=== PATIENT | female | born 1990 | race Caucasian/White ===

== ENCOUNTER 2021-05-23 21:13 | Emergency (ER) | payer OTHER ==
[2021-05-23] MEDS ORDERED: ASPIRIN 81 MG CHEWABLE TABLETS PO ONE (22:54)
[2021-05-23] MEDS ORDERED: ASPIRIN 81 MG CHEWABLE TABLETS ONE (23:03)
[2021-05-23] MEDS ORDERED: ACETAMINOPHEN 500 MG TABLET (FP) PO ONE (23:26)
[2021-05-23 23:31] LABS: BASO % 0.4 % (0-2.0); EOS % 1.1 % (0-4.5); HEMATOCRIT 39.2 % (32.4-45.2); HEMOGLOBIN 13.2 GM/dL (10.7-15.3); LYMPH % 32.8 % (8-40); MCH 31.5 pg (25.7-33.7); MCHC 33.8 g/dl (32.0-36.0); MEAN CELL VOLUME 93.2 fl (80-96); MONO % 11.6 % (3.8-10.2); NEUT % 54.1 % (42.8-82.8); PLATELET COUNT 229 10^3/uL (134-434); RBC 4.21 M/mm3 (3.60-5.2)
[2021-05-23 23:42] LABS: CHLORIDE 106 mmol/L (98-107); SODIUM 142 mmol/L (136-145)
[2021-05-23 23:43] LABS: CALCIUM 8.8 mg/dL (8.5-10.1)
[2021-05-23 23:44] LABS: ALBUMIN 4.1 g/dl (3.4-5.0); BLOOD UREA NITROGEN 9.2 mg/dL (7-18); GLUCOSE,RANDOM 120 mg/dL (74-106); PROTHROMBIN TIME (PATIENT) 12.3 SEC (9.7-13.0)
[2021-05-23 23:45] LABS: ANION GAP 5 MMOL/L (8-16); CO2 30 mmol/L (21-32)
[2021-05-23 23:47] LABS: CREATININE 0.8 mg/dL (0.55-1.3); SGOT/AST 14 U/L (15-37); SGPT/ALT 18 U/L (13-61)
[2021-05-23 23:49] LABS: BILIRUBIN,TOTAL 0.3 mg/dL (0.2-1); TOT PROT 7.4 g/dl (6.4-8.2)
[2021-05-23 23:50] LABS: ALK PHOS 62 U/L (45-117)
[2021-05-24] MEDS ORDERED: ACETAMINOPHEN 500 MG TABLET (FP) ONE (00:24)
[2021-05-24] MEDS ORDERED: LIDOCAINE 5% TOPICAL PATCH TP ONE (00:46)
[2021-05-24] MEDS ORDERED: LIDOCAINE 5% TOPICAL PATCH ONE (00:51)
[2021-05-24] MEDS ORDERED: MAG HYDROX/AL HYDROX/SIMETH 30 ML UNIT-DOSE CUP PO ONE (01:03)
[2021-05-24] MEDS ORDERED: MAG HYDROX/AL HYDROX/SIMETH 30 ML UNIT-DOSE CUP ONE ×2 (01:14→01:45)
[2021-05-24 01:20] VITALS: BP 135/77; PULSE 71; TEMP 98.6
[2021-05-24] MEDS ORDERED: LIDOCAINE PATCH REMOVAL MC ONE (13:00)
== END 2021-05-24 02:47 | disposition home or self-care (01) ==
LOC: JER 21:13
DX: R07.9 Chest pain, unspecified (principal)
CPT/HCPCS: 36415; 71046-TC-FY; 80053; 84484; 84703; 85025; 85610; 93005; 93010; 99284-25; C9803; U0003; U0005

== ENCOUNTER 2022-07-19 07:10 | Inpatient (IN) | payer OTHER ==
[2022-07-19] MEDS ORDERED: DINOPROSTONE 10 MG VAGINAL SUPPOSITORY VG ONE (07:59)
[2022-07-19 09:15] LABS: BASO % 0.2 % (0-2.0); EOS % 0.3 % (0-4.5); HEMATOCRIT 39.8 % (32.4-45.2); HEMOGLOBIN 13.7 GM/dL (10.7-15.3); LYMPH % 17.9 % (8-40); MCHC 34.4 g/dl (32.0-36.0); MEAN CELL VOLUME 95.7 fl (80-96); MEAN PLT VOLUME 8.1 fl (7.5-11.1); MONO % 11.9 % (3.8-10.2); NEUT % 69.7 % (42.8-82.8); PLATELET COUNT 197 10^3/uL (134-434); RBC 4.16 M/mm3 (3.60-5.2); WHITE BLOOD COUNT 7.7 K/mm3 (4.0-10.0)
[2022-07-19 09:17] LABS: INR 0.92 (0.83-1.09); PROTHROMBIN TIME (PATIENT) 10.6 SEC (9.7-13.0)
[2022-07-19 09:20] LABS: ACTIVATED PTT 26.6 SECONDS (25.2-36.5)
[2022-07-19 09:31] LABS: BLOOD UREA NITROGEN 8.2 mg/dL (7-18); CALCIUM 8.4 mg/dL (8.5-10.1)
[2022-07-19 09:35] LABS: CREATININE 0.5 mg/dL (0.55-1.3)
[2022-07-19 10:09] VITALS: BMI 26.6
[2022-07-19] MEDS ORDERED: DEXTROSE 5%-LACTATED RINGERS 1,000 ML IV SCH (10:45)
[2022-07-19] MEDS ORDERED: PROMETHAZINE HCL 25 MG/1 ML VIAL IVPUSH ONE (10:46)
[2022-07-19] MEDS ORDERED: BUTORPHANOL TARTRATE 1 MG/ML VIAL IVPUSH PRN (10:46)
[2022-07-19] MEDS ORDERED: BUTORPHANOL TARTRATE 2 MG/ML VIAL ONE (14:11)
[2022-07-19] MEDS ORDERED: PROMETHAZINE HCL 25 MG/1 ML VIAL ONE (14:12)
[2022-07-19] MEDS ORDERED: FENTANYL/BUPIVACAINE/NS/PF - PCEA - 50 ML DISP.SYRIN EP ONE (16:36)
[2022-07-19] MEDS ORDERED: NALOXONE HCL 0.4 MG/ML VIAL IVPUSH PRN (17:20)
[2022-07-19] MEDS ORDERED: FENTANYL/BUPIVACAINE/NS/PF - PCEA - 50 ML DISP.SYRIN EP SCH (17:30)
[2022-07-19] MEDS ORDERED: LIDOCAINE HCL 1% PRESERVATIVE FREE - 30ML VIAL ONE (19:25)
[2022-07-19] MEDS ORDERED: OXYTOCIN 20 UNITS in 0.9% NS 20 UNIT/1,000 ML INFUS.BAG IV ONE (19:25)
[2022-07-19] MEDS ORDERED: BISACODYL 10 MG SUPP.RECT RC PRN (22:18)
[2022-07-19] MEDS ORDERED: METHYLERGONOVINE MALEATE 0.2 MG/1 ML AMP IM PRN (22:18)
[2022-07-19] MEDS ORDERED: ACETAMINOPHEN 325 MG TABLET (FP) PO PRN (22:18)
[2022-07-19] MEDS ORDERED: oxyCODONE HCL 5 MG TABLET PO PRN (22:18)
[2022-07-19] MEDS ORDERED: IBUPROFEN 600 MG TABLET (FP) PO PRN (22:18)
[2022-07-19] MEDS ORDERED: WITCH HAZEL 50% (TUCKS) 40 PAD/JAR PAD TP PRN (22:18)
[2022-07-19] MEDS ORDERED: BENZOCAINE 20% 57 GM BOTTLE TP PRN (22:18)
[2022-07-19] MEDS ORDERED: BENZOCAINE 28 GM HEMORRHOIDAL OINTMENT TP PRN (22:18)
[2022-07-19] MEDS ORDERED: OXYTOCIN 20 UNITS in 0.9% NS 20 UNIT/1,000 ML INFUS.BAG IV SCH (22:30)
[2022-07-19 22:56] LABS: CORD BASE EXCESS -5.3 mmol/L (0-2); CORD HCO3 21.7 mmHg (20-29); CORD HCO3 22.1 mmHg (20-29); CORD PCO2 47.5 mmHg (30-78); CORD PCO2 53.1 mmHg (30-78); CORD pH 7.237 (7.14-7.44); CORD pH 7.277 (7.14-7.44)
[2022-07-20 09:40] LABS: BASO % 0.5 % (0-2.0); EOS % 0.3 % (0-4.5); HEMATOCRIT 38.1 % (32.4-45.2); LYMPH % 13.6 % (8-40); MCH 33.1 pg (25.7-33.7); MCHC 34.3 g/dl (32.0-36.0); MEAN CELL VOLUME 96.5 fl (80-96); MEAN PLT VOLUME 8.2 fl (7.5-11.1); MONO % 9.8 % (3.8-10.2); NEUT % 75.8 % (42.8-82.8); PLATELET COUNT 186 10^3/uL (134-434); RBC 3.94 M/mm3 (3.60-5.2); RDW 13.4 % (11.6-15.6)
[2022-07-20 21:12] VITALS: TEMP 98.3
[2022-07-20] MEDS ORDERED: SENNOSIDES/DOCUSATE COMBO (SENNA PLUS) TABLET (UD) PO PRN (22:00)
[2022-07-21 10:55] VITALS: BP 113/75; PULSE 82; RESP 16
== END 2022-07-21 14:38 | disposition home or self-care (01) | DRG 807 ==
LOC: JLDR 07:10 → J3W 07-20 00:04
PROVIDERS: ADMIT Obstetrics & Gynecology; ATTEND Obstetrics & Gynecology
PROC: 10E0XZZ Delivery of Products of Conception, External Approach (ICD-10-PCS; principal; 2022-07-19)
PROC: 0HQ9XZZ Repair Perineum Skin, External Approach (ICD-10-PCS; 2022-07-19)
PROC: 3E0P7VZ Introduction of Hormone into Female Reproductive, Via Natural or Artificial Opening (ICD-10-PCS; 2022-07-19)
DX: O36.63X0 Maternal care for excessive fetal growth, third trimester, not applicable or unspecified (principal); Z37.0 Single live birth; O70.0 First degree perineal laceration during delivery; Z3A.39 39 weeks gestation of pregnancy
CPT/HCPCS: 36415; 36600; 59409; 80048; 82803; 85025; 85610; 85730; 86780; 86850; 86900; 86901; C9803-CS; U0003; U0005

== ENCOUNTER 2022-08-15 16:37 | Day surgery (SDC) | payer OTHER ==
[2022-08-15 16:54] VITALS: BMI 23.6
[2022-08-15] MEDS ORDERED: ONDANSETRON 4 MG/2 ML VIAL IVPUSH ONE (17:50)
[2022-08-15 18:51] LABS: BASO % 0.4 % (0-2.0); EOS % 0.8 % (0-4.5); HEMATOCRIT 41.2 % (32.4-45.2); HEMOGLOBIN 13.5 GM/dL (10.7-15.3); LYMPH % 23.8 % (8-40); MCH 31.5 pg (25.7-33.7); MCHC 32.8 g/dl (32.0-36.0); MEAN CELL VOLUME 96.2 fl (80-96); MEAN PLT VOLUME 8.3 fl (7.5-11.1); MONO % 8.7 % (3.8-10.2); NEUT % 66.3 % (42.8-82.8); PLATELET COUNT 231 10^3/uL (134-434); RBC 4.28 M/mm3 (3.60-5.2); RDW 12.7 % (11.6-15.6); WHITE BLOOD COUNT 7.9 K/mm3 (4.0-10.0)
[2022-08-15 18:59] LABS: INR 0.97 (0.83-1.09); PROTHROMBIN TIME (PATIENT) 11.1 SEC (9.7-13.0)
[2022-08-15 19:01] LABS: ACTIVATED PTT 30.7 SECONDS (25.2-36.5)
[2022-08-15 19:07] LABS: CHLORIDE 108 mmol/L (98-107); SODIUM 140 mmol/L (136-145)
[2022-08-15 19:09] LABS: CALCIUM 8.8 mg/dL (8.5-10.1)
[2022-08-15 19:10] LABS: ALBUMIN 3.1 g/dl (3.4-5.0); CO2 26 mmol/L (21-32); GLUCOSE,RANDOM 92 mg/dL (74-106)
[2022-08-15 19:13] LABS: CREATININE 0.8 mg/dL (0.55-1.3); SGOT/AST 79 U/L (15-37); SGPT/ALT 78 U/L (13-61)
[2022-08-15 19:14] LABS: BILIRUBIN,TOTAL 0.3 mg/dL (0.2-1)
[2022-08-15 19:16] LABS: ALK PHOS 118 U/L (45-117)
[2022-08-15 19:20] LABS: ANION GAP 7 MMOL/L (8-16)
[2022-08-15] MEDS ORDERED: SODIUM CHLORIDE 1,000 ML IV SCH (21:45)
[2022-08-15] MEDS ORDERED: METHYLERGONOVINE MALEATE 0.2 MG/1 ML AMP IM ONE (21:52)
[2022-08-15 23:33] LABS: BASO % 0.4 % (0-2.0); EOS % 1.2 % (0-4.5); HEMATOCRIT 40.6 % (32.4-45.2); HEMOGLOBIN 13.4 GM/dL (10.7-15.3); LYMPH % 31.3 % (8-40); MCH 31.6 pg (25.7-33.7); MEAN CELL VOLUME 95.9 fl (80-96); MONO % 12.4 % (3.8-10.2); NEUT % 54.7 % (42.8-82.8); PLATELET COUNT 226 10^3/uL (134-434); RBC 4.24 M/mm3 (3.60-5.2); RDW 12.5 % (11.6-15.6); WHITE BLOOD COUNT 6.2 K/mm3 (4.0-10.0)
[2022-08-15 23:57] LABS: BLOOD UREA NITROGEN 12.9 mg/dL (7-18); CALCIUM 8.7 mg/dL (8.5-10.1)
[2022-08-16] LABS: CREATININE 0.6 mg/dL (0.55-1.3)
[2022-08-16] MEDS ORDERED: METHYLERGONOVINE MALEATE 0.2 MG/1 ML AMP IM ONE (09:36)
[2022-08-16 09:44] LABS: CALCIUM 8.6 mg/dL (8.5-10.1)
[2022-08-16 09:46] LABS: BLOOD UREA NITROGEN 13.7 mg/dL (7-18)
[2022-08-16 09:48] LABS: CREATININE 0.7 mg/dL (0.55-1.3)
[2022-08-16 10:39] LABS: EPI CELLS 23 /uL (0-25.1); HYALINE CASTS 1 /uL (0-3.1); URINE APPEARANCE CLOUDY; URINE BACTERIA 59 /uL (0-1359); URINE BILIRUBIN NEGATIVE (NEGATIVE); URINE COLOR YELLOW; URINE GLUCOSE (UA) NEGATIVE (NEGATIVE); URINE KETONE NEGATIVE (NEGATIVE); URINE LEUK ESTERASE TRACE (NEGATIVE); URINE NITRITE NEGATIVE (NEGATIVE); URINE PROTEIN NEGATIVE (NEGATIVE); URINE RBC 2319 /uL (0-23.9); URINE UROBILINOGEN 0.2 mg/dL (0.2-1.0); URINE WBC 64 /uL (0-25.8)
[2022-08-16 11:08] VITALS: RESP 18
[2022-08-16 13:28] LABS: BASO % 0.3 % (0-2.0); EOS % 0.8 % (0-4.5); HEMATOCRIT 39.3 % (32.4-45.2); HEMOGLOBIN 12.9 GM/dL (10.7-15.3); LYMPH % 28.8 % (8-40); MCH 31.6 pg (25.7-33.7); MCHC 32.9 g/dl (32.0-36.0); MEAN CELL VOLUME 96.2 fl (80-96); MEAN PLT VOLUME 7.9 fl (7.5-11.1); MONO % 10.4 % (3.8-10.2); NEUT % 59.7 % (42.8-82.8); PLATELET COUNT 220 10^3/uL (134-434); RBC 4.08 M/mm3 (3.60-5.2); RDW 12.5 % (11.6-15.6); WHITE BLOOD COUNT 6.8 K/mm3 (4.0-10.0)
[2022-08-16 15:06] VITALS: BP 107/73; PULSE 85; TEMP 98.5
== END 2022-08-16 15:20 | disposition home or self-care (01) ==
LOC: JER 16:37 → JASUSAT 21:32 → J3W 08-16 10:59 → JASUSAT 08-16 15:20
PROVIDERS: ATTEND Obstetrics & Gynecology
PROC: 10D17ZZ Extraction of Products of Conception, Retained, Via Natural or Artificial Opening (ICD-10-PCS; principal; 2022-08-15)
DX: O72.2 Delayed and secondary postpartum hemorrhage (principal); Z53.8 Procedure and treatment not carried out for other reasons
CPT/HCPCS: 0241U-QW; 36415; 76830-TC; 80048; 80053; 81003; 84702; 85025; 85610; 85730; 86850; 86900; 86901; 99285-25